=== PATIENT | male | born 1990 | race Caucasian/White ===

== ENCOUNTER → 2018-02-23 08:14 | Outpatient (CLI) | payer OTHER, SELFPAY ==
[2018-02-23 11:04] LABS: Absolute Lymphocyte Count 2.21 X10^3/ul (0.83-4.51); Basophil# 0.04 X10^3/uL; Basophil% 0.7 % (0-1); Eosinophil# 0.11 X10^3/uL; Eosinophils% 1.9 % (0-5); Hematocrit 45.9 % (40-54); Hemoglobin 16.2 g/dl (13.0-16.5); Lymphocyte # 2.21 X10^3/ul (4.0); Lymphocyte % 37.3 % (19-41); Mean Corp Hgb Conc 35.3 g/gl (32-36); Mean Platelet Vol. 9.6 fl (6.2-12.0); Monocyte# 0.52 X10^3/uL; Monocyte% 8.8 % (0-10); Neutrophil # 3.03 X10^3/uL (2.7-7.7); Neutrophil % 51.1 % (47-70); Platelet Count 282 K/mm3 (150-450); RBC Distribution Width CV 12.7 % (11.6-14.6); RBC Distribution Width SD 38.8 fl (35.1-43.9); White Blood Count 5.9 K/mm3 (4.4-11.0)
[2018-02-23 11:08] LABS: POSITIVE COUNT NO; POSITIVE DIFFERENTIAL NO; POSITIVE MORPHOLOGY NO
[2018-02-23 11:16] LABS: Anion Gap 9 (5-15); BUN 12 mg/dL (7-18); BUN/Creat Ratio 12.2 RATIO (10-20); Calcium,Total 8.4 mg/dL (8.5-10.1); Chloride 107 mmol/L (98-107); Cholesterol 141 mg/dL (200); Creatinine, Serum 0.98 mg/dL (0.70-1.30); EST Glomerular Filtration Rate 98 mL/min (>60); Est Glom Filt Rate - Afr Amer 118 mL/min (>60); Glucose 86 mg/dL (74-106); High Density Lipoprotein 31 mg/dL; Potassium 4.1 mmol/L (3.5-5.1); Sodium Level 142 mmol/L (136-145); Triglycerides 210 mg/dL; Very Low Density Lipoprotein 42 mg/dL (5-40)
== END ==
PROVIDERS: Family Provider Family Medicine; PCP Family Medicine; Visit Provider Family Medicine
DX: Z00.00 Encounter for general adult medical examination without abnormal findings (principal); E66.9 Obesity, unspecified; R03.0 Elevated blood-pressure reading, without diagnosis of hypertension
CPT/HCPCS: 36415; 80048; 80061; 85025

== ENCOUNTER 2022-08-17 10:33 | Emergency (ER) | payer OTHER, SELFPAY ==
[2022-08-17 10:34] VITALS: BP 151/88; PULSE 86; RESP 14; TEMP 36.3; O2SAT 95; BMI 38.7
--- NOTE | 2022-08-17 10:44 | ED.VIS.DYS ---
HPI History of Present Illness Chief Complaint: Cold Sx Narrative Narrative: 31-year-old male presenting with mild sinus pressure. He states it started last evening. 2 children and a significant other who all have fevers for the last couple days. He reports her fevers have been as high as 103 ?F. He states he does not have a cough, shortness of breath, fever, chills, body aches, nausea, vomiting. He feels otherwise well. PFSH PFSH Medical History no medical history Allergy/AdvReac Type Severity Reaction Status Date / Time No Known Allergies Allergy Verified 08/17/22 11:08 Family History no significant family his Surgical History no surgical history Social History Smoking Status: Current every day smoker tobacco type: cigarettes EXAM Physical Exam Const Vital Signs: 08/17/22 10:34 08/17/22 11:05 Temperature 97.4 F L Temperature Source Temporal Pulse Rate 86 Respiratory Rate 14 Respiratory Effort Short of Breath Respiratory Pattern Normal Blood Pressure 151/88 H Blood Pressure Mean 109 Pulse Ox 95 Oxygen Delivery Method Room Air Positive well nourished General Appearance ED: NAD; Negative for pallor HEENT Reports moist mucous membranes atraumatic Eyes PERRL and EOMs intact bilaterally General Eye ED: Negative for pale conjunctiva or scleral icterus Resp Auscultation: Negative for rales, rhonchi or wheezes Cardio regular rate and regular rhythm GI non-tender Neuro oriented x3 and CN's II-XII intact bilaterally Psych mental status grossly normal Skin no wounds and skin turgor normal General Skin Exam: Negative for jaundice or pallor MDM MDM MDM Narrative Medical decision making narrative: Patient presents with mild sinus pressure. He has no other symptoms. He feels well. He does have sick contacts in his home who all have had fevers. He request testing for COVID/influenza, and he also states he has concerned that the kids might have RSV so wants to be tested for this. Patient did not require anything for pain or nausea. Symptoms are mild. All testing is negative today. Patient was discharged home in stable condition. Impression: 1. Viral Lab Data Attestation: I reviewed the patient's lab results. Discharge Plan Triage Chief Complaint: Cold Sx ED Provider: Eddie Silverman Dx/Rx/DC Orders Instructions: ED Viral Syndrome (Adult) Primary Care Provider: Brittany Bueno Referrals: Brittany Bueno MD [Primary Care Provider] - Disposition Disposition: Home, Self Care
== END 2022-08-17 13:01 | disposition home or self-care (01) ==
PROVIDERS: Emergency Provider Student in an Organized Health Care Education/Training Program; PCP Family Medicine; Visit Provider Student in an Organized Health Care Education/Training Program
DX: B34.9 Viral infection, unspecified (principal); R50.9 Fever, unspecified; F17.210 Nicotine dependence, cigarettes, uncomplicated
CPT/HCPCS: 87428; 87807; 99282

== ENCOUNTER → 2025-05-07 | Outpatient (CLI) | payer OTHER, SELFPAY ==
--- OUTSIDE RECORDS SUMMARY | 2025-05-07 08:07 | XMS RPT_ITS | CCD ---
Author Organization [facility] Care Team Providers Care Shovel Mechanic Name Role Phone Eddie Silverman Attending Unavailable Brittany Borrego Primary Care Unavailable Brittany Borrego MD Primary Care Provider BRITTANY BORREGO Primary Care Unavailable Medications Current Medications Medication Drug Class(es) Dates Sig (Normalized) Sig (Original) albuterol 5 mg/ml inhalation solution (2 sources) beta2-Adrenergic Agonist Start: 10-02-2017 albuterol (PROVENTIL) 5 mg/mL nebu Indications: Decreased breath sounds Inhale 0.5 mL as instructed one time only for 1 dose. 1 DOSE NOW - BACK OFFICE. PLACE 0.5 ML PER DROPPER AND 2.5 ML OF NORMAL SALINE INTO RESERVOIR. 1 mL 0 10/02/2017 Active Start: 10-02-2017 take 2 puff(s) by in halation every four hours as needed albuterol HFA (PROAIR HFA) 90 mcg/actuation inhaler Indications: URI with cough and congestion Inhale 2 Puffs as instructed every 4 hours as needed. 1 Inhaler 0 10/02/2017 Active benzonatate 200 mg oral capsule (1 source) Non-narcotic Antitussive Start: 10-02-2017 take 1 capsule by mouth three times daily as needed Benzonatate 200 mg capsule Indications: URI with cough and congestion Take 1 capsule by mouth three times daily as needed. 30 capsule 0 10/02/2017 Active predniSONE 10 mg oral tablet (1 source) Start: 02-16-2024 End: 02-25-2024 predniSONE (DELTASONE) 10 mg tablet Indications: Allergic contact dermatitis due to food in contact with skin Take 4 tabs daily for 3 days, then 2 tabs daily for 3 days, then 1 tab daily for 3 days with food. 21 tablet 0 02/16/2024 02/25/2024 Active Problems Problem Classification Problem Date Documented Da te Episodic/Chronic Allergic reactions (1 source) Allergic contact dermatitis due to food in contact with the skin; Translations: [Allergic contact dermatitis due to food in contact with the skin] 02-16-2024 Episodic Viral infection (1 source) Viral infection, unspecified; Translations: [Viral infection, unspecified] Onset: 08-22-2022 Episodic Results Test Name Value Interpretation Reference Range Facil itsasha Lazcano 02-16-2024 CNOV Office Visit (UCWSTR) JI BEE ([id number]) 1990 M Date Time Provider Department 02/16/24 7:15 AM CHRISTY SHELTON RUST During your visit today, we recorded the following information about you: Temperature Pulse Respiration Blood pressure 96.8 degrees 86/minute 18/minute 126/93 Weight 120 kg Christy Shelton APRN.HUNTING AND FISHING GUIDE 02/16/2024 7:26 AM Signed Subjective She came in with complaints of itching rash. Patient says he got into some poison elizabeth few days ago. Patient says it seems to be getting worse. Patient denies any other symptoms at this time. The history is provided by the patient. No pediatric speech language pathologist was used. Review of Systems Constitutional: Negative. Skin: Positive for itching and rash. Objective Physical Exam Skin: Comments: Does have vesicular rash in the areas marked above. Consistent with poison elizabeth. no Signs of infection. No past medical history on file. No past surgical history on file. ALLERGIES Patient has no known allergies. MEDICATIONS predniSONE (DELTASONE) 10 mg tablet Take 4 tabs daily for 3 days, then 2 tabs daily for 3 days, then 1 tab daily for 3 days with food. albuterol (PROVENTIL) 5 mg/mL nebu Inhale 0.5 mL as instructed one time only for 1 dose. 1 DOSE NOW - BACK OFFICE. PLACE 0.5 ML PER DROPPER AND 2.5 ML OF NORMAL SALINE INTO RESERVOIR. (Patient not taking: Reported on 12/10/2019 ) albuterol HFA (PROAIR HFA) 90 mcg/actuation inhaler Inhale 2 Puffs as instructed every 4 hours as needed. (Patient not taking: Reported on 12/10/2019) Benzonatate 200 mg capsule Take 1 capsule by mouth three times daily as needed. (Patient not taking: Reported on 12/10/2019) No family history on file. Social History Tobacco Use Smoking status: Never Smokeless tobacco: Current ASSESSMENT/PLAN: 1. Allergic contact dermatitis due to food in contact with skin - ICD9: 692.5, ICD10: L23.6 - PREDNISONE 10 MG TABLET Patient was educated about proper use of medication and supportive therapies. Patient will follow-up with signs and symptoms seem to be getting worse not better. Patient was okay with this care plan. Christy Shelton APRN.HUNTING AND FISHING GUIDE Allergies As of Date: 02/16/2024 (No Known Allergies) Date Reviewed: 02/16/2024 Reviewed by: Nehal Goodman LPN - Fully Assessed Reason for Visit: Derm Problem [33] Cmt: Poison Elizabeth face, arms, legs x 2 days Primary Visit Diagnosis:Allergic contact dermatitis due to food in contact with skin [L23.6] Order(s):predniSONE (DELTASONE) 10 mg tabletTake 4 tabs daily for 3 days, then 2 tabs daily for 3 days, then 1 tab daily for 3 days with food.Disp: 21 tabletRfl: 0 Prescriptions as of 02/16/2024 - predniSONE (DELTASONE) 10 mg tablet Take 4 tabs daily for 3 days, then 2 tabs daily for 3 days, then 1 tab daily for 3 days with food. - albuterol (PROVENTIL) 5 mg/mL nebu Inhale 0.5 mL as instructed one time only for 1 dose. 1 DOSE NOW - BACK OFFICE. PLACE 0.5 ML PER DROPPER AND 2.5 ML OF NORMAL SALINE INTO RESERVOIR. - albuterol HFA (PROAIR HFA) 90 mcg/actuation inhaler Inhale 2 Puffs as instructed every 4 hours as needed. - Benzonatate 200 mg capsule Take 1 capsule by mouth three times daily as needed. Problem List As Of Date: 02/16/2024 (None) Prescriptions ordered this encounter Disp Refills Start End PREDNISONE 10 MG TABLET 21 t* 0 02/16/2024 02/25/2024 Sig: Take 4 tabs daily for 3 days, then 2 tabs daily for 3 days, then 1 tab daily for 3 days with food. Letter Text Encounter Status:Closed by CHRISTY SHELTON on 02/16/24 Normal [facility] Emergency Department Summary on 08-17-2022 Emergency Department Summary [facility] Medical Records Department [address] [place] [address] Emergency Department Summary 08/17/22 MR#: [id number] Acct: [id number] Name: JI BEE Rep #: [id number] : 1990 31 From: Eddie Silverman DO PCP: Dr. Brittany Borrego MD Status:REG ER Location: ED HPI History of Present Illness Chief Complaint: Cold Sx Narrative Narrative: 31-year-old male presenting with mild sinus pressure. He states it started last evening. 2 children and a significant other who all have fevers for the last couple days. He reports her fevers have been as high as 103 ???F. He states he does not have a cough, shortness of breath, fever, chills, body aches, nausea, vomiting. He feels otherwise well. PFSH PFSH Medical History no medical history Allergy/AdvReac Type Severity Reaction Status Date / Time No Known Allergies Allergy Verified 08/17/22 11:08 Family History no significant family his Surgical History no surgical history Social History Smoking Status: Current every day smoker tobacco type: cigarettes EXAM Physical Exam Const Vital Signs: 08/17/22 10:34 08/17/22 11:05 Temperature 97.4 F L Temperature Source Temporal Pulse Rate 86 Respiratory Rate 14 Respiratory Effort Short of Breath Respiratory Pattern Normal Blood Pressure 151/88 H Blood Pressure Mean 109 Pulse Ox 95 Oxygen Delivery Method Room Air Positive well nourished General Appearance ED: NAD; Negative for pallor HEENT Reports moist mucous membranes atraumatic Eyes PERRL and EOMs intact bilaterally General Eye ED: Negative for pale conjunctiva or scleral icterus Resp Auscultation: Negative for rales, rhonchi or wheezes Cardio regular rate and regular rhythm GI non-tender Neuro oriented x3 and CN's II-XII intact bilaterally Psych mental status grossly normal Skin no wounds and skin turgor normal General Skin Exam: Negative for jaundice or pallor MDM MDM MDM Narrative Medical decision making narrative: Patient presents with mild sinus pressure. He has no other symptoms. He feels well. He does have sick contacts in his home who all have had fevers. He request testing for COVID/influenza, and he also states he has concerned that the kids might have RSV so wants to be tested for this. Patient did not require anything for pain or nausea. Symptoms are mild. All testing is negative today. Patient was discharged home in stable condition. Impression: 1. Viral Lab Data Attestation: I reviewed the patient's lab results. Discharge Plan Triage Chief Complaint: Cold Sx ED Provider: Eddie Silverman Dx/Rx/DC Orders Instructions: ED Viral Syndrome (Adult) Primary Care Provider: Brittany Borrego Referrals: Brittany Borrego MD [Primary Care Provider] - Disposition Disposition: Home, Self Care What to do if you have Problems For any increased pain, shortness of breath, bleeding, nausea or vomiting, chest pain, or any unexpected problems, contact your Primary Care Provider. Call [facility] ([phone]) or report to the closest Emergency Room. Call 911 if necessary. 08/17/22 1243 Cosigner Signature (if applicable): CC: Dr. Brittany Borrego MD Signed Normal [facility] M101.0111on 08-17-2022 M101.0111 *Negative results from patients with symptom onset beyond five days should be treated as presumptive and confirmed by a molecular assay if clinically necessary. Negative results should not be used as the sole basis for treatment or for patient management. FLUABV+SARS-CoV2 Ag Pnl Up resp IA.rapid *Positive results do not differentiate between SARS-CoV and SARS-CoV-2. FLUABV+SARS-CoV2 Ag Pnl Up resp IA.rapid Negative Influenza results should be confirmed with FLU PANEL MOLECULAR if indicated. FLUABV+SARS-CoV2 Ag Pnl Up resp IA.rapid * This test has not been FDA cleared or approved; the test has been authorized by FDA under an Emergency Use Authorization (EAU) for use by laboratories certified under CLIA that meet the requirements to perform moderate, high, or waived complexity tests. FLUABV+SARS-CoV2 Ag Pnl Up resp IA.rapid Normal Reference Range: Negative Ladi, FRANKIE method SARS-CoV-2 (COVID 19) Negative Influenza Ag, Direct Presumptive NEGATIVE for Influenza A/B Antigen (See Note) Normal [facility] Comment on above: Performed By: #### M 101.0111 #### [facility] [address] [place], [address] RSV Ag (Rapid FRANKIE)on RSV Ag (FRANKIE) Normal Reference Range: Negative Ladi, FRANKIE method RSV Ag NEGATIVE Normal [facility] Comment on above: Performed By: #### M 100.6604 #### [facility] [address] [place], [address] No Panel Information SARS-CoV-2 & FLU Antigen (Rapid) [facility] Work Phone: Vital Signs Date Time Vital Sign Value Performing Clinician Nemo valdez 02-16-2024 07:15-0400 Body temperature 96.8 [degF] Christy Shelton APRN.HUNTING AND FISHING GUIDE Work Phone: [facility] 02-16-2024 07:15-0400 Body weight 120 kg Christy Shelton APRN.HUNTING AND FISHING GUIDE Work Phone: [facility] 02-16-2024 07:15-0400 Diastolic blood pressure 93 mm[Hg] Christy Shelton APRN.HUNTING AND FISHING GUIDE Work Phone: [facility] 02-16-2024 07:15-0400 Heart rate 86 /min Christy Shelton APRN.HUNTING AND FISHING GUIDE Work Phone: [facility] 02-16-2024 07:15-0400 Respiratory rate 18 /min Christy Shelton APRN.CNP Work Phone: [facility] 02-16-2024 07:15-0400 SaO2% (BldA) [Mass fraction] 98 % Christy Shelton APRN.HUNTING AND FISHING GUIDE Work Phone: [facility] 02-16-2024 07:15-0400 Systolic blood pressure 126 mm[Hg] Christy Shelton APRN.HUNTING AND FISHING GUIDE Work Phone: [facility] 08-17-2022 10:34-0500 Body height 177.8 cm [facility] Work Phone: 08-17-2022 10:34-0500 Body mass index (BMI) [Ratio] 38.7 kg/m2 [facility] Work Phone: 08-17-2022 10:34-0500 Body temperature 97.4 [degF] [facility] Work Phone: 08-17-2022 10:34-0500 Body weight 122.46 kg [facility] Work Phone: 08-17-2022 10:34-0500 Diastolic blood pressure 88 mm[Hg] [facility] Work Phone: 08-17-2022 10:34-0500 Heart rate 86 /min [facility] Work Phone: 08-17-2022 10:34-0500 Respiratory rate 14 /min [facility] Work Phone: 08-17-2022 10:34-0500 SaO2% (BldA) [Mass fraction] 95 % [facility] Work Phone: 08-17-2022 10:34-0500 Systolic blood pressure 151 mm[Hg] [facility] Work Phone: Encounters Encounter Date Encounter Type Care Provider Facility Start: 02-16-2024 End: 02-16-2024 ambulatory BRITTANY BORREGO Facility:[facility] Start: 02-16-2024 End: 02-16-2024 Patient encounter procedure Christy Shelton APRN.HUNTING AND FISHING GUIDE Work Phone: [facility] Comment on above: Allergic contact hari matitis due to food in contact with skin (Primary Dx) Start: 08-17-2022 End: 08-17-2022 Emergency department patient visit Eddie Herrera Facility:[facility] Start: 08-17-2022 End: 08-17-2022 Emergency department patient visit [facility]-Emergency Department Procedures Date Procedure Procedure Detail Performing Clinician Respiratory syncytial virus antigen assay SARS-CoV-2 & FLU Antigen (Rapid) Plan of Treatment Date Care Activity Detail Author Start: 05-26-2024 Influenza vaccination Influenz a Vaccine (Season Ended) [facility] Start: 09-25-2023 Behavioral Health Screening Behavioral Health Screening [facility] Start: 05-26-2023 Covid-19 Vaccine ( season) Covid-19 Vaccine ( season) [facility] Start: 08-17-2022 [facility] Work Phone: Start: 2010 Hepatitis B Vaccine (1 of 3 - 19+ 3-dose series) Hepatitis B Vaccine (1 of 3 - 19+ 3-dose series) [facility] Start: 2010 Urine microalbumin profile DTaP,Tdap,Td Vaccine (1 - Tdap) [facility] Start: 2009 Hepatitis C screening Hepatitis C Sc [facility] Start: 2009 HIV screening HIV Screening [facility] Patient Education ED Viral Syndr ome (Adult) [facility] Work Phone: Patient referral [facility] Work Phone: Payers Date Payer Category Payer Self-pay [id number] 2022 Unknown [id number] 2019 Unknown [id number] 2015 Unknown [employer] CE PLAN [place] [facility] PLAN GENERIC [id number] 2015-Present [phone] [address] [place] [address] PPO [id number] Unknown [id number] Social History Date Type Detail Facility Start: 08-17-2022 [facility] Work Phone: Start: 1990 Sex Assigned At Male [facility] Work Phone: Start: 02-16-2024 [facility] tobacco [facility] Start: 02-16-2024 Tobacco use and exposure User of smokeless tobacco [facility] Start: 08-30-2020 End: 02-16-2024 History of Social function [facility] Start: 08-30-2020 End: 02-16-2024 Tobacco use panel [facility] National Score (1-100), lower number is lower risk Not on file [facility] Start: 1990 Sex Assigned At Not on file [facility] Mental Status Date Assessment Result Facility 08-17-2022 Cognitive function Level Of Cons ciousness Awake;Alert;Appropriate;Follow s Commands [facility] Work Phone: Progress note 02-16-2024 Note Date & Type Note Facility 02-16-2024 Note HNO ID: [id number] Author: CHRISTY SHELTON APRN.HUNTING AND FISHING GUIDE Service: ? Author Type: Nurse Practitioner Type: Progress Notes Filed: 02/16/2024 07:26 Note Text: Subjective She came in with complaints of itching rash. Patient says he got into some poison elizabeth few days ago. Patient says it seems to be getting worse. Patient denies any other symptoms at this time. The history is provided by the patient. No pediatric speech language pathologist was used. Review of Systems Constitutional: Negative. Skin: Positive for itching and rash. Objective Physical Exam Skin: Comments: Does have vesicular rash in the areas marked above. Consistent with poison elizabeth. no Signs of infection. No past medical history on file. No past surgical history on file. ALLERGIES Patient has no known allergies. MEDICATIONS predniSONE (DELTASONE) 10 mg tablet Take 4 tabs daily for 3 days, then 2 tabs daily for 3 days, then 1 tab daily for 3 days with food. albuterol (PROVENTIL) 5 mg/mL nebu Inhale 0.5 mL as instructed one time only for 1 dose. 1 DOSE NOW - BACK OFFICE. PLACE 0.5 ML PER DROPPER AND 2.5 ML OF NORMAL SALINE INTO RESERVOIR. (Patient not taking: Reported on 12/10/2019 ) albuterol HFA (PROAIR HFA) 90 mcg/actuation inhaler Inhale 2 Puffs as instructed every 4 hours as needed. (Patient not taking: Reported on 12/10/2019) Benzonatate 200 mg capsule Take 1 capsule by mouth three times daily as needed. (Patient not taking: Reported on 12/10/2019) No family history on file. Social History Tobacco Use Smoking status: Never Smokeless tobacco: Current ASSESSMENT/PLAN: 1. Allergic contact dermatitis due to food in contact with skin - ICD9: 692.5, ICD10: L23.6 - PREDNISONE 10 MG TABLET Patient was educated about proper use of medication and supportive therapies. Patient will follow-up with signs and symptoms seem to be getting worse not better. Patient was okay with this care plan. Christy Shelton APRN.[facility] History of Present illness Narrative 02-16-2024 Christy Shelton APRN.HUNTING AND FISHING GUIDE - 02/16/2024 7:18 AM EDT Note Date & Type Note Facility 02-16-2024 History of Presen t illness Narrative Images from the original note were not included. Subjective She came in with complaints of itching rash. Patient says he got into some poison elizabeth few days ago. Patient says it seems to be getting worse. Patient denies any other symptoms at this time. The history is provided by the patient. No pediatric speech language pathologist was used. Review of Systems Constitutional: Negative. Skin: Positive for itching and rash. Objective Physical Exam Skin: Comments: Does have vesicular rash in the areas marked above. Consistent with poison elizabeth. no Signs of infection. No past medical history on file. No past surgical history on file. ALLERGIES Patient has no known allergies. MEDICATIONS predniSONE (DELTASONE) 10 mg tablet Take 4 tabs daily for 3 days, then 2 tabs daily for 3 days, then 1 tab daily for 3 days with food. albuterol (PROVENTIL) 5 mg/mL nebu Inhale 0.5 mL as instructed one time only for 1 dose. 1 DOSE NOW - BACK OFFICE. PLACE 0.5 ML PER DROPPER AND 2.5 ML OF NORMAL SALINE INTO RESERVOIR. (Patient not taking: Reported on 12/10/2019 ) albuterol HFA (PROAIR HFA) 90 mcg/actuation inhaler Inhale 2 Puffs as instructed every 4 hours as needed. (Patient not taking: Reported on 12/10/2019) Benzonatate 200 mg capsule Take 1 capsule by mouth three times daily as needed. (Patient not taking: Reported on 12/10/2019) No family history on file. Social History Tobacco Use Smoking status: Never Smokeless tobacco: Current ASSESSMENT/PLAN: 1. Allergic contact dermatitis due to food in contact with skin - ICD9: 692.5, ICD10: L23.6 - PREDNISONE 10 MG TABLET Patient was educated about proper use of medication and supportive therapies. Patient will follow-up with signs and symptoms seem to be getting worse not better. Patient was okay with this care plan. Christy Shelton APRN.RONNIE documented in this encounter [facility] Evaluation note Note Date & Type Note Facility Evaluation note No assessment information availa [facility] Work Phone: Evaluation note Note Date & Type Note Facility Evaluation note Diagnosis Allergic contact dermatitis due to food in contact with skin- Primary Contact dermatitis and other eczema due to food in contact with skin documented in this encounter [facility] Chief Complaint and Reason for Visit Chief Complaint COUGH Advance Directives No Advanced Directives Records Found Advance Directive Response Recorded Date/ Time Living Will No August 17 11:05am Power of Ell Teacher No August 17, 2022 11:05am Summary Purpose Family History No Family History Records FoundNo Family History Records Found Additional Source Comments Goals (unrecognized section and content) Goals may be documented in a n alternate section (unrecognized sect ion and content) No Status Records FoundNo Status Records Found INFORMATION SOURCE (unrecogn ized section and content) DATE CREATED AUTHOR 08/23/2022 [facility] DATE CREATED AUTHOR AUTHOR'S KIRT ATBULMARO 02/18/2024 [facility] Source Comments (unrecognize d section and content) In the event this informatio n is protected by the Federal Confidentiality of Alcohol and Drug Abuse Patient Records regulations: The Federal rules restrict any use of the information to criminally investigate or prosecute any alcohol or drug abuse patient.[facility] Reason for Visit (unrecogniz ed section and content) Reason Comments Derm Problem Poison Elizabeth face, arm s, legs x 2 days Care Teams (unrecognized sec tion and content) Shovel Mechanic Relationship Specialty Start Date End Date Brittany Borrego MD [address] [facility] [place] [address] PCP - General Family Medicine 12/10/19 FOR RECORDS PERTAINING TO PATIENTS WHO ARE OR HAVE BEEN ENROLLED IN A CHEMICAL DEPENDENCY/SUBSTANCEABUSE PROGRAM, SOME INFORMATION MAY BE OMITTED. This clinical summary was aggregated from multiple sources. Caution should be exercised in using it in the provision of clinical care. This summary normalizes information from multiple sources, and as a consequence, information in this document may materially change the coding, format and clinical context of patient data. In addition, data may be omitted in some cases. CLINICAL DECISIONS SHOULD BE BASED ON THE PRIMARY CLINICAL RECORDS. [employer] [facility]. provides no warranty or guarantee of the accuracy or completeness of information in this document.
[2025-05-07 10:37] LABS: Hematocrit 45.8 % (40-54); Hemoglobin 16.1 g/dL (13.0-16.5); Immature Granulocytes Count 0.010 X10^3/uL (0.0-0.0); Mean Corp Hgb Conc 35.2 g/dL (32-36); Mean Corpuscular Volume 85.1 fL (80-94); Mean Platelet Vol. 9.2 fl (6.2-12.0); NRBC Flagged by Analyzer 0 % (0-5); Platelet Count 278 K/mm3 (150-450); RBC Distribution Width CV 12.3 % (11.6-14.6); RBC Distribution Width SD 37.4 fl (35.1-43.9); Red Blood Count 5.38 M/mm3 (4.6-6.2); White Blood Count 5.8 K/mm3 (4.4-11.0)
[2025-05-07 11:35] LABS: AST(SGOT) 27 U/L (<=37); Alanine Aminotransfer ALT/SGPT 50 U/L (<=46); Albumin, Serum 4.2 g/dL (3.5-5.0); Alkaline Phosphatase 98 U/L (40-129); Anion Gap 12 (5-15); BUN 14 mg/dL (4-19); BUN/Creat Ratio 14.5 RATIO (10-20); Calcium,Total 9.3 mg/dL (7.6-11.0); Carbon Dioxide 23.8 mmol/L (21.0-32.0); Chloride 106 mmol/L (98-108); Cholesterol 145 mg/dL (<=200); Ferritin 343 ng/mL (37-417); Globulin 3.1 g/dL (2.2-4.2); Glucose 85 mg/dL (70-99); Low Density Lipoprotein Calc. 80 mg/dL; Potassium 4.3 mmol/L (3.3-5.1); Triglycerides 136 mg/dL; Very Low Density Lipoprotein 27 mg/dL (5-40); cholesterol:hdl ratio screen 3.86
== END | disposition home or self-care (01) ==
LOC: MTLAB 07:47
PROVIDERS: PCP Family Medicine; Referring Provider Family Medicine; Visit Provider Family Medicine
DX: Z00.00 Encounter for general adult medical examination without abnormal findings (principal); R03.0 Elevated blood-pressure reading, without diagnosis of hypertension; E83.119 Hemochromatosis, unspecified
CPT/HCPCS: 36415; 80053; 80061; 82728; 85025